=== PATIENT | female | born 2000 | race Caucasian/White ===

== ENCOUNTER 2020-11-25 07:18 | Emergency (ER) | payer OTHER ==
[2020-11-25 08:45] LABS: ALBUMIN 3.5 g/dL (3.4-5.0); BILIRUBIN - TOTAL 0.3 mg/dL (0.2-1.0); BUN/CREAT RATIO (CALC) 15.3 RATIO; CREATININE 0.59 mg/dL (0.51-0.95); GLOBULIN (CALCULATION) 3.5 g/dL; POTASSIUM 4.1 mmol/L (3.5-5.1)
[2020-11-25 08:49] LABS: BASOPHIL 0.3 % (0-2); EOSINOPHIL 0.4 % (0-5); HCT 39.5 % (37.0-47.0); HGB 12.9 g/dl (12.5-16.0); LYMPHOCYTE 19.4 % (15-48); MCH 29.5 pg (25.0-31.0); MCHC 32.7 g/dL (32.0-36.0); MCV 90.2 fL (78.0-100.0); MONOCYTE 6.8 % (0-12); MPV 10.4 fL (6.0-9.5); NEUTROPHIL 72.8 % (41-80); NRBC 0; PLT 246 K/uL (150-400); RBC 4.38 M/uL (4.20-5.40); RDW 12.6 % (11.5-14.0); WBC 7.1 K/uL (4.0-10.5)
[2020-11-25 08:54] LABS: INR 1.05 (0.9-1.2); PTT 31.1 SECONDS (22.2-34.7)
[2020-11-25 09:27] LABS: BILIRUBIN NEGATIVE (NEGATIVE); BLOOD 3+ Ery/uL (NEGATIVE); CLARITY CLEAR (CLEAR); COLOR YELLOW (YELLOW); GLUCOSE (U) NORMAL (NORMAL); LEUKOCYTES NEGATIVE Leu/uL (NEGATIVE); NITRITE NEGATIVE (NEGATIVE); PROTEIN NEGATIVE (NEGATIVE); UROBILINOGEN 0.2 mg/dL (0.2-1.0)
[2020-11-25 09:34] LABS: BACTERIA 1+; URINARY WBC RARE
== END 2020-11-25 09:40 | disposition home or self-care (01) ==
LOC: FER 07:18
PROVIDERS: Emergency Medicine
DX: O03.9 Complete or unspecified spontaneous abortion without complication (principal); Z88.1 Allergy status to other antibiotic agents
CPT/HCPCS: 36415; 76801; 80053; 81001; 84702; 85025; 85610; 85730; 86850; 86900; 86901; J2270; J2405

== ENCOUNTER 2021-02-20 12:52 | Emergency (ER) | payer OTHER | END 2021-02-20 18:05 | disposition home or self-care (01) | LOC: FER 12:52 | DX: O26.891 Other specified pregnancy related conditions, first trimester (principal); R10.2 Pelvic and perineal pain; Z20.828 Contact with and (suspected) exposure to other viral communicable diseases; Z3A.08 8 weeks gestation of pregnancy | CPT/HCPCS: 99283 ==

== ENCOUNTER 2021-03-07 12:41 | Emergency (ER) | payer OTHER ==
[2021-03-07 13:23] LABS: BASOPHIL 0.3 % (0-2); EOSINOPHIL 0.2 % (0-5); HGB 13.8 g/dl (12.5-16.0); LYMPHOCYTE 19.9 % (15-48); MCH 28.8 pg (25.0-31.0); MCHC 32.9 g/dL (32.0-36.0); MCV 87.7 fL (78.0-100.0); MONOCYTE 7.6 % (0-12); MPV 10.2 fL (6.0-9.5); NEUTROPHIL 71.7 % (41-80); NRBC 0; PLT 291 K/uL (150-400); RBC 4.79 M/uL (4.20-5.40); RDW 12.5 % (11.5-14.0); WBC 8.6 K/uL (4.0-10.5)
[2021-03-07 13:41] LABS: BUN/CREAT RATIO (CALC) 7.7 RATIO; CREATININE 0.52 mg/dL (0.51-0.95); POTASSIUM 3.6 mmol/L (3.5-5.1)
[2021-03-07] MEDS ORDERED: ZOFRAN4 M1 PO (15:27)
== END 2021-03-07 15:51 | disposition home or self-care (01) ==
LOC: FER 12:41
PROVIDERS: Nurse Practitioner Family
DX: O20.0 Threatened abortion (principal); Z88.1 Allergy status to other antibiotic agents; Z3A.00 Weeks of gestation of pregnancy not specified
CPT/HCPCS: 36415; 76817; 80048; 84702; 85025; J7120

== ENCOUNTER 2021-04-16 13:08 | Emergency (ER) | payer OTHER ==
[~2021-04-16 13:08] MED LIST: ZOFRAN4 M1 PO
[2021-04-16 14:33] LABS: BILIRUBIN NEGATIVE (NEGATIVE); BLOOD NEGATIVE Ery/uL (NEGATIVE); CLARITY CLEAR (CLEAR); COLOR YELLOW (YELLOW); GLUCOSE (U) NORMAL (NORMAL); LEUKOCYTES 1+ Leu/uL (NEGATIVE); NITRITE NEGATIVE (NEGATIVE); PROTEIN NEGATIVE (NEGATIVE); SPECIFIC GRAVITY <=1.005 (1.001-1.030); UROBILINOGEN 0.2 mg/dL (0.2-1.0); pH 5.5 (5.0-9.0)
[2021-04-16 14:39] LABS: BACTERIA 1+
[2021-04-16 18:22] LABS: BASOPHIL 0.2 % (0-2); EOSINOPHIL 0.3 % (0-5); HCT 40.6 % (37.0-47.0); HGB 13.4 g/dl (12.5-16.0); MCH 29.1 pg (25.0-31.0); MCV 88.3 fL (78.0-100.0); MONOCYTE 6.5 % (0-12); MPV 10.4 fL (6.0-9.5); NEUTROPHIL 68.7 % (41-80); NRBC 0; PLT 248 K/uL (150-400); RDW 13.2 % (11.5-14.0); WBC 9.1 K/uL (4.0-10.5)
[2021-04-16 18:46] LABS: ALBUMIN 3.5 g/dL (3.4-5.0); BILIRUBIN - TOTAL 0.3 mg/dL (0.2-1.0); BUN/CREAT RATIO (CALC) 10.2 RATIO; CREATININE 0.49 mg/dL (0.51-0.95); GLOBULIN (CALCULATION) 3.6 g/dL; POTASSIUM 3.3 mmol/L (3.5-5.1); TOTAL PROTEIN 7.1 g/dL (6.4-8.2)
[2021-04-16 19:26] LABS: AMPHETAMINES NEGATIVE (NEGATIVE); BARBITURATES NEGATIVE (NEGATIVE); ECSTASY (MDMA) NEGATIVE (NEGATIVE); MARIJUANA (THC) NEGATIVE (NEGATIVE); METHADONE NEGATIVE (NEGATIVE); OPIATES NEGATIVE (NEGATIVE); OXYCODONE NEGATIVE (NEGATIVE)
== END 2021-04-16 20:40 | disposition home or self-care (01) ==
LOC: FER 13:08
PROVIDERS: Emergency Medicine; Nurse Practitioner Family
DX: O03.4 Incomplete spontaneous abortion without complication (principal); Z88.1 Allergy status to other antibiotic agents; Z87.09 Personal history of other diseases of the respiratory system
CPT/HCPCS: 36415; 80053; 80305; 81001; 84702; 85025; 87088; J1885; J2405; J7030; Q9967

== ENCOUNTER 2022-03-22 11:20 | Emergency (ER) | payer OTHER ==
[2022-03-22] MEDS ORDERED: ONDANSETRON ODT4 MG PO (11:59)
== END 2022-03-22 12:08 | disposition home or self-care (01) ==
LOC: FER 11:20
DX: B34.9 Viral infection, unspecified (principal); M94.0 Chondrocostal junction syndrome [Tietze]; Z28.310 Unvaccinated for COVID-19; Z20.822 Contact with and (suspected) exposure to COVID-19; Z88.0 Allergy status to penicillin
CPT/HCPCS: 99284; U0002